=== PATIENT | male | born 1975 | race Two or more races ===

== ENCOUNTER 2018-09-05 03:30 | Emergency (ER) | payer OTHER ==
[~2018-09-05] VITALS: Ht 180.3 cm; Wt 72.6 kg
[2018-09-05] MEDS ORDERED: predniSONE 20 MG TABLET ONE (03:57)
[2018-09-05] MEDS ORDERED: ALBUTEROL FS 2.5 MG/3 ML VIAL.NEB ONE (03:59)
[2018-09-05] MEDS ORDERED: IPRATROPIUM NEB FS 0.5 MG/2.5 ML AMPUL.NEB ONE (03:59)
[2018-09-05] MEDS ORDERED: ALBUTEROL FS 2.5 MG/3 ML VIAL.NEB NEB ONE (04:00)
[2018-09-05] MEDS ORDERED: IPRATROPIUM NEB FS 0.5 MG/2.5 ML AMPUL.NEB NEB ONE (04:00)
[2018-09-05] MEDS ORDERED: predniSONE 20 MG TABLET PO ONE (04:00)
--- NOTE | 2018-09-05 04:05 | NUR ---
BIB SELF C/C WOKE UP FROM SLEEP FROM ASTHMA ATTACK, OUT OF INHALER. 98% O2 SAT, IN BED COMFORTABLE, NO COMPLAINT OF RESPIRATORY DISTRESS, RT TO GIVE BREATHING TREATMENT
--- NOTE | 2018-09-05 04:57 | NUR ---
PT LAYING COMFORTABLE IN BED WITH BREATHING TREATMENT, REPORTS BREATHING EVEN AND UNLABORED, NO DISTRESS AT THE MOMENT
--- NOTE | 2018-09-05 05:28 | NUR ---
Patient discharged to home in stable condition. Written and verbal after care instructions given. Patient verbalizes understanding of instruction.
[2018-09-05 05:29] VITALS: BP 100/56
== END 2018-09-05 05:29 | disposition home or self-care (01) ==
LOC: ER 03:34
DX: J45.909 Unspecified asthma, uncomplicated (principal); F17.200 Nicotine dependence, unspecified, uncomplicated
CPT/HCPCS: 94644; 99285; 99406; J7512

== ENCOUNTER 2018-09-28 12:12 | Emergency (ER) | payer OTHER ==
[~2018-09-28] VITALS: Ht 177.8 cm; Wt 79.4 kg
--- NOTE | 2018-09-28 12:12 | NUR ---
BIB [facility] 37 AND [employer] FROM [facility], C/O INCREASED ANXIETY, STS, UNABLE TO USE HEROIN AND METH X 4 DAYS SINCE HE WAS IN PRISON, TO ER BED 12, HOOKED TO MONITOR, PROVIDED W WARM BLANKET, AWAITING MD SILVERMAN
--- NOTE | 2018-09-28 13:02 | NUR ---
ASHLEY OSORIO AT BEDSIDE
[2018-09-28] MEDS ORDERED: IPRATROPIUM NEB FS 0.5 MG/2.5 ML AMPUL.NEB NEB ONE (13:30)
[2018-09-28] MEDS ORDERED: LORAZEPAM 1 MG TABLET PO ONE (13:30)
[2018-09-28] MEDS ORDERED: predniSONE 20 MG TABLET PO ONE (13:30)
[2018-09-28] MEDS ORDERED: ALBUTEROL FS 2.5 MG/3 ML VIAL.NEB CONTNEB ONE (13:30)
[2018-09-28] MEDS ORDERED: LORAZEPAM 1 MG TABLET ONE (13:40)
[2018-09-28] MEDS ORDERED: predniSONE 20 MG TABLET ONE (13:40)
[2018-09-28] MEDS ORDERED: ALBUTEROL FS 2.5 MG/3 ML VIAL.NEB ONE (13:51)
[2018-09-28] MEDS ORDERED: IPRATROPIUM NEB FS 0.5 MG/2.5 ML AMPUL.NEB ONE (13:52)
[2018-09-28] MEDS ORDERED: IV NS 0.9% 1,000 ML BAG IV ONE (15:00)
[2018-09-28] MEDS ORDERED: Magnesium 1GM/D5W 100ML PREMIX 200 ML IV ONE ×2 (15:00→15:34)
--- NOTE | 2018-09-28 17:13 | NUR ---
IV removed. Catheter intact and site benign. Pressure and 4x4 applied to site. No bleeding noted. Patient discharged IN CUSTODY in stable condition. Written and verbal after care instructions given. Patient verbalizes understanding of instruction.
[2018-09-28 17:17] VITALS: BP 119/68
== END 2018-09-28 17:18 ==
LOC: ER 12:14
DX: J45.901 Unspecified asthma with (acute) exacerbation (principal); F41.9 Anxiety disorder, unspecified; F11.23 Opioid dependence with withdrawal; F15.10 Other stimulant abuse, uncomplicated; F10.10 Alcohol abuse, uncomplicated; F17.200 Nicotine dependence, unspecified, uncomplicated; Y90.9 Presence of alcohol in blood, level not specified; Z02.89 Encounter for other administrative examinations
CPT/HCPCS: 71045; 93005; 94644; 96365; 99285; 99406; J3475; J7030; J7512

== ENCOUNTER 2019-07-12 12:31 | Emergency (ER) | payer OTHER ==
[~2019-07-12] VITALS: Ht 180.3 cm; Wt 80.3 kg
--- NOTE | 2019-07-12 12:32 | NUR ---
PT [id number] C/O SOB SINCE LAST NIGHT, INHALER NOT HELPING, PT IS AAOX4, NOT IN RESPIRATORY DISTRESS, HOOKED TO SCALLOP BINDER, KEPT RESTED AND COMFORTABLE, WILL CONTINUE TO MONITOR.
[2019-07-12] MEDS: methylPREDNISolone SOD SUCC 125 MG/2ML VIAL IV ONE (12:50)
[2019-07-12] MEDS: Magnesium 1GM/D5W 100ML PREMIX 200 ML IV ONE (12:50)
--- NOTE | 2019-07-12 12:50 | NUR ---
TODDLER GUIDE AT BEDSIDE FOR XRAY.
[2019-07-12] MEDS ORDERED: Magnesium 1GM/D5W 100ML PREMIX 200 ML IV ONE (12:55)
[2019-07-12] MEDS ORDERED: methylPREDNISolone SOD SUCC 125 MG/2ML VIAL ONE (12:55)
[2019-07-12] MEDS ORDERED: ALBUTEROL FS 2.5 MG/3 ML VIAL.NEB ONE (13:23)
--- NOTE | 2019-07-12 13:24 | NUR ---
RT AT BEDSIDE FOR BREATHING TREATMENT.
[2019-07-12] MEDS: ALBUTEROL FS 2.5 MG/3 ML VIAL.NEB NEB ONE (13:29)
[2019-07-12 14:05] VITALS: BP 121/76
--- NOTE | 2019-07-12 14:05 | NUR ---
IV removed. Catheter intact and site benign. Pressure and 4x4 applied to site. No bleeding noted. Patient discharged to home in stable condition. Written and verbal after care instructions given. Patient verbalizes understanding of instruction.
== END 2019-07-12 14:05 | disposition home or self-care (01) ==
LOC: ER 12:33
DX: J45.901 Unspecified asthma with (acute) exacerbation (principal); F17.200 Nicotine dependence, unspecified, uncomplicated; R06.03 Acute respiratory distress
CPT/HCPCS: 71045; 94640 ×2; 96365; 96375; 99284; 99406; J2930; J3475